=== PATIENT | male | born 1995 | race African-American/Black ===

== ENCOUNTER 2018-04-03 08:02 | Emergency (ER) | payer MEDICAID ==
[2018-04-03] MEDS ORDERED: KETOROLAC 60 MG/2 ML VIAL IVP STA (08:31)
--- NOTE | 2018-04-03 08:35 | ED Physician Documentation ---
History of Present Illness - Stated complaint Stated Complaint: CHEST PAIN - Chief complaint Chief Complaint: Cardiac - Additonal information Additional information: hx from pt 22 y/o male healthy fhx HTN DM sickle cell but not CAD he has had left upper chest pain for 3 days hurts to move no fever no cough no soa felt swollen to lower throat earlier but not now no abd pain no leg swelling no travel or ick contacts moves boxes at work no other known trauma Review of Systems Constitutional: denies: Fever, Chills Cardiac: reports: Chest pain / pressure Respiratory: denies: Dyspnea GI: denies: Abdominal Pain, Nausea, Vomiting Musculoskeletal: denies: Extremity swelling Immunocompromised: denies: Immunocompromised, Chemotherapy PD PAST MEDICAL HISTORY - Past Medical History Past Medical History: No - Past Surgical History Past Surgical History: No - Present Medications Home Medications: Ambulatory Orders Medication Instructions Recorded Confirmed Indomethacin [Indocin] 25 mg PO TIDWM PRN #30 capsule 04/03/18 - Allergies Allergies/Adverse Reactions: Allergies Allergy/AdvReac Type Severity Reaction Status Date / Time No Known Drug Allergies Allergy Verified 04/03/18 08:21 - Social History Does the pt smoke?: Yes Smoking Status: Current every day smoker Does the pt drink ETOH?: Yes ETOH Use: Liquor PD ED PE NORMAL - Vitals Vital signs reviewed: Yes - Neck Neck: Supple, no meningeal sign - Cardiac Cardiac: RRR, No murmur, Other (mild TTP upper left chest/pec region, no redness swelling warmth) - Respiratory Respiratory: No respiratory distress, Clear bilaterally - Abdomen Abdomen: Soft, Non tender - Derm Derm: Normal color - Extremities Extremities: No edema, No calf tenderness / cord Results - Vitals Vitals: Vital Signs - 24 hr 04/03/18 08:05 Temperature 36.2 C L Heart Rate 61 Respiratory 18 Rate Blood Pressure 129/87 H O2 Saturation 100 Oxygen O2 Source Room air - Labs Labs: Laboratory Tests 04/03/18 04/03/18 04/03/18 08:40 08:40 08:40 WBC 4.3 L RBC 4.26 L Hgb 12.8 L Hct 37.8 L MCV 88.7 MCH 30.1 MCHC 34.0 RDW 12.5 Plt Count 188 MPV 9.7 Neut # (Auto) 2.4 Lymph # (Auto) 1.5 [place] # (Auto) 0.3 Eos # (Auto) 0.1 Baso # (Auto) 0.0 Absolute Nucleated RBC 0.00 Nucleated RBC % 0.1 Manual Slide Review Indicated RBC Morph Micro Appear 1+ ANISOCYTOSIS Sodium 138 Potassium 4.1 Chloride 104 Carbon Dioxide 28 Anion Gap 6.0 BUN 8 Creatinine 0.7 Estimated GFR (MDRD) 168 Glucose 93 Calcium 8.9 Total Bilirubin 0.6 AST 29 ALT 36 Alkaline Phosphatase 39 L Troponin I < 0.04 Total Protein 7.1 Albumin 4.2 Globulin 2.9 Albumin/Globulin Ratio 1.4 Lipase 20 L - Rads (name of study) CXR Radiology: See rad report (NACPD) Departure - Departure Disposition: 01 Home, Self Care Clinical Impression: Chest pain Qualifiers: Chest pain type: unspecified Qualified Code(s): R07.9 - Chest pain, unspecified Condition: Good Instructions: ED Chest Pain Atypical Unkn Cause Prescriptions: Indomethacin [Indocin] 25 mg PO TIDWM PRN #30 capsule PRN Reason: Pain Comments: Your heart checked out fine - no heart attack. The xray did not show any lung problems or aneurysm You are tender to palpate across the pec muscle so the pain may be due to muscles in your chest wall. I think it is safe for you to go home and I have prescribed indocin to relieve the pain Try no to lift anything heavy for the next three days. Return if worse Forms: Activity restrictions
[2018-04-03 08:55] LABS: BASOPHILS % (AUTO) 0.5 %; EOSINOPHILS # (AUTO) 0.1 10^3/uL (0.0-0.7); EOSINOPHILS % (AUTO) 1.4 %; HGB - HEMOGLOBIN 12.8 g/dL (14.0-18.0); LYMPHOCYTES # (AUTO) 1.5 10^3/uL (1.5-3.5); LYMPHOCYTES % (AUTO) 34.7 %; MEAN CORPUSCULAR HEMOGLOBIN 30.1 pg (27.0-31.0); MEAN CORPUSCULAR VOLUME 88.7 fL (80.0-94.0); MEAN PLATELET VOLUME 9.7 fL (7.4-11.4); MONOCYTES # (AUTO) 0.3 10^3/uL (0.0-1.0); MONOCYTES % (AUTO) 8.1 %; NEUTROPHILS # (AUTO) 2.4 10^3/uL (1.5-6.6); NEUTROPHILS % (AUTO) 55.3 %; PLT - PLATELET COUNT 188 10^3/uL (130-450); RED BLOOD COUNT 4.26 10^6/uL (4.70-6.10); RED CELL DISTRIBUTION WIDTH 12.5 % (12.0-15.0); WHITE BLOOD COUNT 4.3 x10^3/uL (4.8-10.8)
--- NOTE | 2018-04-03 09:03 | XRAY Report ---
Reason: soa Procedure Date: 04/03/2018 Accession Number: [id number] / [id number] Procedure: XR - Chest 2 View X-Ray CPT Code: 60912 FULL RESULT: EXAM: CHEST RADIOGRAPHY EXAM DATE: 04/03/2018 08:52 AM. CLINICAL HISTORY: Soa. COMPARISON: None. TECHNIQUE: 2 views. FINDINGS: Lungs/Pleura: No focal opacities evident. No pleural effusion. No pneumothorax. Normal volumes. Mediastinum: Heart and mediastinal contours are unremarkable. Other: None. IMPRESSION: Normal 2-view chest radiography. [facility]
[2018-04-03 09:05] LABS: ALBUMIN 4.2 g/dL (3.2-5.5); ALBUMIN/GLOBULIN RATIO 1.4 (1.0-2.2); BILIRUBIN,TOTAL 0.6 mg/dL (0.2-1.0); CALCIUM 8.9 mg/dL (8.5-10.3); CREATININE 0.7 mg/dL (0.6-1.2); TOTAL PROTEIN 7.1 g/dL (6.7-8.2)
[2018-04-03 09:13] LABS: RBC MORPHOLOGY (MULTIPLE) 1+ ANISOCYTOSIS (NORMAL)
[2018-04-03 09:50] VITALS: BP 128/79
== END 2018-04-03 09:50 | disposition home or self-care (01) ==
LOC: ED 08:02
DX: R07.9 Chest pain, unspecified (principal); F17.200 Nicotine dependence, unspecified, uncomplicated
CPT/HCPCS: 36415; 71046; 80053; 83690; 84484; 85025; 93005; 96374; 99283

== ENCOUNTER 2018-07-24 21:02 | Emergency (ER) | payer SELFPAY ==
[2018-07-24 22:46] LABS: BILIRUBIN,URINE NEGATIVE (NEGATIVE); GLUCOSE, URINE (UA) NEGATIVE (NEGATIVE); KETONES,URINE (UA) TRACE mg/dL (NEGATIVE); LEUKOCYTE ESTERASE, URINE NEGATIVE (NEGATIVE); NITRITE,URINE NEGATIVE (NEGATIVE); OCCULT BLOOD,URINE NEGATIVE (NEGATIVE); PH,URINE 6.5 PH (5.0-7.5); PROTEIN,URINE TRACE mg/dL (NEGATIVE); UROBILINOGEN,URINE 2 E.U./dL (NORMAL)
[2018-07-24 22:49] LABS: CLARITY,URINE CLEAR (CLEAR)
[2018-07-24 22:54] LABS: BASOPHILS % (AUTO) 0.7 %; EOSINOPHILS # (AUTO) 0.1 10^3/uL (0.0-0.7); EOSINOPHILS % (AUTO) 1.3 %; HGB - HEMOGLOBIN 13.3 g/dL (14.0-18.0); LYMPHOCYTES # (AUTO) 1.6 10^3/uL (1.5-3.5); LYMPHOCYTES % (AUTO) 22.5 %; MEAN CORPUSCULAR HEMOGLOBIN 29.6 pg (27.0-31.0); MEAN CORPUSCULAR HGB CONC 33.2 g/dL (32.0-36.0); MEAN CORPUSCULAR VOLUME 89.1 fL (80.0-94.0); MEAN PLATELET VOLUME 9.8 fL (7.4-11.4); MONOCYTES # (AUTO) 0.6 10^3/uL (0.0-1.0); MONOCYTES % (AUTO) 8.2 %; NEUTROPHILS # (AUTO) 4.7 10^3/uL (1.5-6.6); NEUTROPHILS % (AUTO) 67.3 %; PLT - PLATELET COUNT 212 10^3/uL (130-450); RED CELL DISTRIBUTION WIDTH 13.8 % (12.0-15.0)
[2018-07-24 23:02] LABS: ALBUMIN 4.5 g/dL (3.2-5.5); ALBUMIN/GLOBULIN RATIO 1.5 (1.0-2.2); BILIRUBIN,TOTAL 0.6 mg/dL (0.2-1.0); CALCIUM 9.2 mg/dL (8.5-10.3); CREATININE 0.8 mg/dL (0.6-1.2); TOTAL PROTEIN 7.6 g/dL (6.7-8.2)
[2018-07-24 23:09] LABS: PLATELET ESTIMATE, MANUAL NORMAL (130-450,000) (NORMAL); PLATELET MORPHOLOGY 1+ GIANT PLATELETS (NORMAL); RBC MORPHOLOGY (MULTIPLE) NORMAL APPEARANCE (NORMAL)
--- NOTE | 2018-07-24 23:10 | ED Physician Documentation ---
PD HPI ABD PAIN - Stated complaint Stated Complaint: ABD PX - Chief complaint Chief Complaint: Abd Pain - History obtained from History obtained from: Patient - History of Present Illness Timing - onset: How many days ago (2) Timing - duration: Days (2) Timing - details: Gradual onset, Still present, Waxing and waning Quality: Cramping, Aching, Pain Location: Periumbilical, Suprapubic Radiation: No: Chest, Lower back, Left flank, Right flank Improved by: Laying still, BM, Position (lying on side). No: Eating Worsened by: Moving, Position (lying on back), Palpation. No: Eating Associated symptoms: Nausea, Diarrhea (not large amount but has had small amounts of watery stool associated with cramps. No blood in stool.). No: Fever, Vomiting, Constipation, Dysuria, Testicular pain Similar symptoms before: Has not had sx before Recently seen: Not recently seen Review of Systems Constitutional: denies: Fever, Chills, Myalgias Nose: denies: Rhinorrhea / runny nose, Congestion Throat: denies: Sore throat Respiratory: denies: Cough GI: reports: Abdominal Pain, Nausea, Diarrhea (small amounts but had few episodes today). denies: Abdominal Swelling, Vomiting, Constipation, Bloody / black stool : denies: Dysuria, Discharge Skin: denies: Rash, Lesions PD PAST MEDICAL HISTORY - Past Medical History Past Medical History: No GI: None - Past Surgical History Past Surgical History: No - Present Medications Home Medications: Ambulatory Orders Medication Instructions Recorded Confirmed Dicyclomine [Bentyl] 10 mg PO QID PRN #16 capsule 07/25/18 Naproxen 500 mg PO BID #20 tablet 07/25/18 Tramadol HCl 50 mg PO Q6H PRN #15 tablet 07/25/18 - Allergies Allergies/Adverse Reactions: Allergies Allergy/AdvReac Type Severity Reaction Status Date / Time No Known Drug Allergies Allergy Verified 07/24/18 21:29 - Social History Does the pt smoke?: Yes Smoking Status: Current every day smoker Does the pt drink ETOH?: Yes Does the pt have substance abuse?: No - Immunizations Immunizations are current?: Yes PD ED PE NORMAL - Vitals Vital signs reviewed: Yes - General General: Alert and oriented X 3, No acute distress, Well developed/nourished - HEENT HEENT: Pharynx benign - Neck Neck: Supple, no meningeal sign, No adenopathy - Cardiac Cardiac: RRR, No murmur - Respiratory Respiratory: Clear bilaterally - Abdomen Abdomen: Normal bowel sounds, Soft, Non distended, No organomegaly, Other (tender periumbilical area with some guarding and mild percussion tenderness. No rebound. ) - Male Male : Deferred - Back Back: No CVA TTP - Derm Derm: Normal color, Warm and dry - Neuro Neuro: Alert and oriented X 3, No motor deficit, Normal speech Results - Vitals Vitals: Vital Signs - 24 hr 07/24/18 07/24/18 07/25/18 21:25 22:46 00:35 Temperature 37.5 C Heart Rate 82 73 77 Respiratory 17 16 16 Rate Blood Pressure 132/81 H 126/71 135/83 H O2 Saturation 100 99 99 Oxygen O2 Source Room air - Labs Labs: Laboratory Tests 07/24/18 07/24/18 07/24/18 22:38 22:40 22:40 WBC 7.0 RBC 4.50 L Hgb 13.3 L Hct 40.1 L MCV 89.1 MCH 29.6 MCHC 33.2 RDW 13.8 Plt Count 212 MPV 9.8 Neut # (Auto) 4.7 Lymph # (Auto) 1.6 [place] # (Auto) 0.6 Eos # (Auto) 0.1 Baso # (Auto) 0.0 Absolute Nucleated RBC 0.01 Nucleated RBC % 0.1 Manual Slide Review Indicated Platelet Estimate NORMAL (130-450,000) Platelet Morphology 1+ GIANT PLATELETS RBC Morph Micro Appear NORMAL APPEARANCE Sodium 139 Potassium 3.9 Chloride 102 Carbon Dioxide 29 Anion Gap 8.0 BUN 14 Creatinine 0.8 Estimated GFR (MDRD) 144 Glucose 101 H Calcium 9.2 Total Bilirubin 0.6 AST 22 ALT 26 Alkaline Phosphatase 34 L Total Protein 7.6 Albumin 4.5 Globulin 3.1 Albumin/Globulin Ratio 1.5 Lipase 26 Urine Color YELLOW Urine Clarity CLEAR Urine pH 6.5 Ur Specific [place] 1.025 Urine Protein TRACE Urine Glucose (UA) NEGATIVE Urine Ketones TRACE Urine Occult Blood NEGATIVE Urine Nitrite NEGATIVE Urine Bilirubin NEGATIVE Urine Urobilinogen 2 H Ur Leukocyte Esterase NEGATIVE Ur Microscopic Review NOT INDICATED Urine Culture Comments NOT INDICATED Ethyl Alcohol 07/24/18 23:26 WBC RBC Hgb Hct MCV MCH MCHC RDW Plt Count MPV Neut # (Auto) Lymph # (Auto) [place] # (Auto) Eos # (Auto) Baso # (Auto) Absolute Nucleated RBC Nucleated RBC % Manual Slide Review Platelet Estimate Platelet Morphology RBC Morph Micro Appear Sodium Potassium Chloride Carbon Dioxide Anion Gap BUN Creatinine Estimated GFR (MDRD) Glucose Calcium Total Bilirubin AST ALT Alkaline Phosphatase Total Protein Albumin Globulin Albumin/Globulin Ratio Lipase Urine Color Urine Clarity Urine pH Ur Specific [place] Urine Protein Urine Glucose (UA) Urine Ketones Urine Occult Blood Urine Nitrite Urine Bilirubin Urine Urobilinogen Ur Leukocyte Esterase Ur Microscopic Review Urine Culture Comments Ethyl Alcohol < 5.0 - Rads (name of study) abd/pelvic CT Radiology: Prelim report reviewed (normal appendix. No acute process noted. ), EMP read contemporaneously, See rad report PD MEDICAL DECISION MAKING - ED course Complexity details: reviewed results (Normal abdominal CT.), re-evaluated patient (Feeling better with medicines.), considered differential (Pain largely periumbilical and not particularly the right lower quadrant. It may be a viral enteritis but he is only had small diarrheal movements and no vomiting. I be concerned for atypical appendicitis or colitis. Shared decision was to do a CT scan given some mild peritoneal symptoms locally in that area.), d/w patient Departure - Departure Disposition: 01 Home, Self Care Clinical Impression: Abdominal pain Qualifiers: Abdominal location: periumbilical Qualified Code(s): R10.33 - Periumbilical pain Condition: Stable Record reviewed to determine appropriate education?: Yes Instructions: ED Abdominal Pain Unkn Cause Prescriptions: Dicyclomine [Bentyl] 10 mg PO QID PRN #16 capsule PRN Reason: Abdominal Pain Naproxen 500 mg PO BID #20 tablet Tramadol HCl 50 mg PO Q6H PRN #15 tablet PRN Reason: Pain Comments: Stay well-hydrated. There is no signs of cysts significant cause of your pain with the CT scan showing normal appendix and other major organs. No signs of stones. Your urine is clear as well. I presume this is a intestinal virus or inflammation and it should improve over the next couple of days. Use some naproxen anti-inflammatory twice daily. Add dicyclomine antispasmodic for intestinal cramps or pains. To that add Tylenol or tramadol if needed for pains. Recheck if not improved over the next couple of days return sooner if worsening symptoms. Forms: Activity restrictions Discharge Date/Time: 07/25/18 01:13
[2018-07-24] MEDS ORDERED: SODIUM CHLORIDE 0.9% 1,000 ML IV ONE (23:18)
[2018-07-24] MEDS ORDERED: KETOROLAC 15 MG/ML VIAL IVP STA (23:18)
[2018-07-24] MEDS ORDERED: ONDANSETRON 4 MG/2 ML VIAL IVP STA (23:18)
[2018-07-24] MEDS ORDERED: IOPAMIDOL-300 100 ML VIAL ONE (23:29)
[2018-07-24] MEDS ORDERED: IOPAMIDOL-300 100 ML VIAL IVP ONE (23:51)
--- NOTE | 2018-07-25 00:12 | CT Report ---
Reason: periumbilical/ lower abd pain for 2 days Procedure Date: 07/24/2018 Accession Number: [id number] / [id number] Procedure: CT - Abdomen/Pelvis W CPT Code: FULL RESULT: EXAM: CT ABDOMEN AND PELVIS EXAM DATE: 07/24/2018 11:53 PM. CLINICAL HISTORY: Periumbilical/ lower abdominal pain for 2 days. COMPARISONS: None. TECHNIQUE: Routine helical CT imaging was performed through the abdomen and pelvis. IV contrast: ISOVUE 300 100mL. Enteric contrast: No. Reconstructions: Coronal and sagittal. In accordance with CT protocol optimization, one or more of the following dose reduction techniques were utilized for this exam: automated exposure control, adjustment of mA and/or KV based on patient size, or use of iterative reconstructive technique. FINDINGS: Lung Bases: Unremarkable. Liver: No focal abnormality seen. Gallbladder/Bile Ducts: Unremarkable. Spleen: Normal. Pancreas: Normal. Adrenal Glands: Normal. Kidneys: Normal. No masses or hydronephrosis. Peritoneal Cavity/Bowel: No bowel obstruction seen. No diverticulitis. No free air or free fluid. No lymphadenopathy. Appendix appears normal. Pelvic Organs: Normal. The bladder and visualized pelvic organs are within normal limits. Vasculature: No aneurysms or other significant abnormality. Bones: No significant abnormality. Other: None. IMPRESSION: 1. Appendix appears normal. 2. No acute inflammatory or obstructive process seen in the abdomen or pelvis. [facility]
[2018-07-25 00:35] VITALS: BP 135/83
[2018-07-25] MEDS ORDERED: DICYCLOMINE 10 MG CAPSULE PO STA (00:51)
== END 2018-07-25 01:13 | disposition home or self-care (01) ==
LOC: ED 21:02
DX: R10.33 Periumbilical pain (principal); R11.0 Nausea; R19.7 Diarrhea, unspecified; F17.200 Nicotine dependence, unspecified, uncomplicated
CPT/HCPCS: 36415; 74177; 80053; 80320; 81003; 83690; 85025; 96361; 96374; 99283; 99284; A9270; Q9967; 81001; 87086